=== PATIENT | male | born 1970 | race Caucasian/White ===

== ENCOUNTER 2019-05-07 15:56 | Emergency (ER) | payer OTHER ==
[2019-05-07] MEDS ORDERED: Diphtheria,Pertussis(Acell),Tetanus Vaccine 0.5 ML Syringe IM ONE (16:37)
--- NOTE | 2019-05-07 16:38 | EDM.PDOC ---
ED HPI GENERAL MEDICAL PROBLEM - General Chief Complaint: Laceration Stated Complaint: R INDEX FINGER LAC Time Seen by Provider: 05/07/19 16:30 - History of Present Illness INITIAL COMMENTS - FREE TEXT/NARRATIVE: 48-year-old male presents the emergency room with a index finger laceration. This occurred shortly before arrival the patient was using a pocket knife and accidentally got his finger. Patients tetanus probably should be updated he thinks it was 9 or 10 years ago. The patient denies any other injury with this unfortunate mishap. Right Finger-Index Pain Score (Numeric/FACES): 2 - Related Data Allergies Allergy/AdvReac Type Severity Reaction Status Date / Time No Known Allergies Allergy Verified 05/07/19 16:36 Home Meds: Home Meds Adalimumab [Humira Pen] 1 injection SUBCUT DAILY 05/07/19 [History] Mesalamine [Lialda] 1 tab PO DAILY 05/07/19 [History] ED ROS GENERAL - Review of Systems Review Of Systems: See Below Constitutional: Reports: No Symptoms Respiratory: Reports: No Symptoms Cardiovascular: Reports: No Symptoms GI/Abdominal: Reports: No Symptoms ED EXAM, SKIN/RASH Exam: See Below Exam Limited By: No Limitations General Appearance: Alert, No Apparent Distress Respiratory/Chest: No Respiratory Distress, Lungs Clear, Normal Breath Sounds Cardiovascular: Regular Rate, Rhythm, No Edema, No Murmur Extremities: Other (Patient has an oblique laceration over the proximal interphalangeal joint dorsal surface. Tendon function at all levels of the digit appears to be intact. Measures 1.7 cm) ED SKIN PROCEDURES - Laceration/Wound Repair Right Digit - 2nd (Index) Appearance: Subcutaneous Distal NVT: Neuro & Vascular Intact, No Tendon Injury Local Anesthesia - Lidocaine (Xylocaine): 1% Plain Local Anesthetic Volume: Other (0.5 cc) Exploration/Debridement/Repair: Wound Explored, In a Bloodless Field, Explored to Base, Other (Tendon sheath visualized no lacerations) Lac/Wound length In cm: 1.7 Suture Size: 3-0 # of Sutures: 4 Suture Type: Silk, Simple Tetanus Status Addressed: Yes (Is is updated) Complications: No Course - Vital Signs Last Recorded V/S: Last Vital Signs Temp 36.4 C 05/07/19 16:33 Pulse 71 05/07/19 17:54 Resp 18 05/07/19 17:54 BP 128/57 L 05/07/19 17:54 Pulse Ox 96 05/07/19 17:54 - Orders/Labs/Meds Orders: Active Orders 24 hr Category Date Time Status Vaccines to be Administered [RC] PER UNIT ROUTINE Care 05/07/19 16:38 Active Meds: Medications Discontinued Medications Generic Name Dose Route Start Last Admin Trade Name Dia PRN Reason Stop Dose Admin Diphtheria/Tetanus/Acell Pertussis 0.5 ml 05/07/19 16:37 05/07/19 16:50 Adacel IM 05/07/19 16:38 0.5 ml .ONCE ONE Administration Lidocaine HCl 5 ml 05/07/19 16:37 05/07/19 17:00 Xylocaine-Mpf 1% INJECT 05/07/19 16:38 Not Given ONETIME ONE Lidocaine HCl 10 ml 05/07/19 16:44 05/07/19 16:55 Xylocaine 1% INJECT 05/07/19 16:45 10 ml ONETIME ONE Administration - Re-Assessments/Exams Free Text/Narrative Re-Assessment/Exam: 05/07/19 17:42 Patient had satisfactory repair of this laceration. On aluminum foam splint with slight flexion was placed to help immobilize the finger. Departure - Departure Time of Disposition: 17:43 Disposition: Home, Self-Care 01 Clinical Impression: Laceration of right index finger - Discharge Information Instructions: Laceration Care, Adult Referrals: Zack Quigley MD [Primary Care Provider] - Forms: ED Department Discharge Additional Instructions: Return to the emergency room with any questions problems or any signs or symptoms of infection. Watch for excessive redness drainage or warmth. Keep the wound absolutely clean and dry for the next 48 hours after this she can let water gently run over the area for brief periods of time and then gently dab dry no scrubbing. Suture removal in 10 to 12 days. Be very careful after the stitches are removed as the surrounding skin will tend to get caught on things and tear the area open. Wear the splint for at least 7 days. Sepsis Event Note - Focused Exam Vital Signs: Vital Signs Temp Pulse Resp BP Pulse Ox 05/07/19 17:54 71 18 128/57 L 96 05/07/19 16:33 36.4 C 64 16 142/92 H 98 Date Exam was Performed: 03/02/20 Time Exam was Performed: 18:15 - My Orders Last 24 Hours: My Active Orders 05/07/19 16:38 Vaccines to be Administered [RC] PER UNIT ROUTINE - Assessment/Plan Last 24 Hours: My Active Orders 05/07/19 16:38 Vaccines to be Administered [RC] PER UNIT ROUTINE
[2019-05-07] MEDS ORDERED: Lidocaine 1% 10 ML MDV INJECT ONE (16:44)
== END 2019-05-07 17:54 | disposition home or self-care (01) ==
LOC: JD.ED 15:56
DX: S61.210A Laceration without foreign body of right index finger without damage to nail, initial encounter (principal); Z23 Encounter for immunization; W26.0XXA Contact with knife, initial encounter
CPT/HCPCS: 12001; 90471; 90715; 99282; J2001

== ENCOUNTER 2022-02-18 09:39 | Emergency (ER) | payer OTHER | END 2022-02-18 10:25 | disposition home or self-care (01) | LOC: JD.ED 09:39 | DX: S63.501A Unspecified sprain of right wrist, initial encounter (principal); Z79.899 Other long term (current) drug therapy; W00.9XXA Unspecified fall due to ice and snow, initial encounter; Y99.0 Civilian activity done for income or pay | CPT/HCPCS: 73110-26-RT; 73110-RT; 99283 ==